=== PATIENT | female | born 1965 | race Caucasian/White ===

== ENCOUNTER → 2016-06-10 | Outpatient (CLI) | payer OTHER ==
[~2016-06-10] MED LIST: FLUO40CA8 PO; LORA1TAB13 PO; NYSS/ PO; OXYC1TAB3 PO; OXYC20TA50 PO; RABE20TA5 PO; SIMV40TA4 PO
--- NOTE | 2016-06-22 17:32 | EEG Procedure Note ---
EEG Procedure Note Date of Service Jun 10, 2016. Start / End Times Start Time: 06/10/16 @ 10:49am End Time: 06/12/16 @ 8:11am Referring Physician HILLARY Greer History 50 year old female with migraine and seizure like episodes. Ambulatory EEG for further evaluation of seizures. Home Medication List Scheduled Fluoxetine (Prozac), 40 MG PO BID Oxycodone Hcl (Oxycontin), 20 MG PO Q12 Rabeprazole Sodium (Aciphex), 20 MG PO DAILY Simvastatin (Zocor), 40 MG PO QPM Scheduled PRN Lorazepam (Lorazepam), 1 MG PO Q8 PRN Nystatin (Nystatin Suspension), 5 ML PO QID PRN Oxycodone Immediate Rel Tab (Roxicodone Ir), 1-2 TAB PO Q6 PRN Description This is a 21 electrode ambulatory EEG with a single channel dedicated to limited EKG. The electrodes were placed in accordance with the International 10- 20 system. EEG limited by frequent movement artifact (some of which appeared rhythmic) and multiple lead disconnection artifact. On 06/10/16: O1 disconnection artifact after 12pm, T4 after 4pm, and C4 after 5: 33pm limited read of EEG in those areas after stated times. On 06/11/16: T5 disconnection artifact after 10:30am, T6 after 7pm, and most leads including Fp2 showed disconnection artifact after 11pm severely limiting read of the EEG. At the start of the recording the patient was in an awake state. The background was well organized and composed of symmetric mixed alpha and mild excess beta frequencies. There was a well formed symmetric moderate amplitude posterior dominant rhythm of 11-12 Hz that was reactive to eye opening and closure. Sleep was indicated by symmetric sleep spindles. Patient journal was returned and reviewed. Clinical events reported were carefully reviewed before and after reported times. On 06/10/16 Patient reported headache making her dizzy and nauseous. There was no changes to the awake background during that time, but O1, C4, and T4 had disconnection artifact during that time limiting the read of the EEG in those areas. On 06/11/16 from 1:30-6:30pm the patient reported going to the ER for chest pain. There was no changes to the awake background during that time, but O1, C4, T4,, T5, T6, had disconnection artifact during that time limiting the read of the EEG in those areas. Interpretation This is a normal 48hr ambulatory EEG There was no electrographic seizures or epileptiform discharges seen. Clinical Correlation The read and interpretation of this EEG was limited by multiple early lead disconnection artifact. Day 1 was of fair technical quality and day 2 was of poor technical quality. There was no generalized seizures in association to clinical event of headache, but cannot rule out left occipital or right central-temporal focal seizures due to lead artifact during the time of the event. There was no generalized seizures in association to chest pain event, but cannot rule out focal seizure secondary to multiple lead artifact during that event. This EEG does not rule out epilepsy if there is a strong clinical suspicion.
== END | disposition home or self-care (01) ==
LOC: C.NEUR 10:27
PROVIDERS: ATTEND Nurse Practitioner Adult Health
DX: R56.9 Unspecified convulsions (principal); G43.009 Migraine without aura, not intractable, without status migrainosus